=== PATIENT | male | born 1940 | race Caucasian/White ===

== ENCOUNTER 2017-06-08 21:26 | Inpatient (IN) | payer OTHER ==
[2017-06-08] MEDS ORDERED: NS 1,000 ML IV ONE (21:42)
--- NOTE | 2017-06-08 21:47 | EDPHY ---
H & P HPI/ROS: CHIEF COMPLAINT: N/V/D, bed bugs HISTORY OF PRESENT ILLNESS: The patient is a 77 y/o male with a history of rheumatoid arthritis arriving via EMS from the [facility] due to concern about failure to thrive. Staff called EMS because he was in the shower for over an hour and they were concerned he was unable to take care of himself. He reports staying in the shower because it felt good. He's had a few days of nausea, vomiting, and diarrhea. His vomiting improved today and he has been able to keep down some fluids, but he is continuing to have diarrhea. He c/o generalized weakness and unsteady gait. He also complains of a bed bug infestation since moving into the [facility] in March. He's noticed bites all over his body and has been scratching relentlessly. He's seen bugs all over his body and clothing, which EMS also observed on their arrival at the [facility]. He generally feels weak and says, "I just need to get my strength back." He denies abdominal pain, fever, cough. REVIEW OF SYSTEMS: Constitutional: No fever, no chills Eyes: No visual changes ENT: No sore throat Respiratory: No cough, no shortness of breath Cardiac: No chest pain Gastrointestinal: see HPI Genitourinary: No hematuria, no dysuria Musculoskeletal: No leg pain or swelling Skin: No rash Neurological: No headache Psychiatric: No anxiety - Medical/Surgical History PMH: PMH includes: 1. Rheumatoid arthritis 2. Multiple compression fractures Prior medical records reviewed including imaging reports from 2014. 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 He complains of a few-day history of nausea, vomiting, diarrhea and 2- month history of pruritic bug bites. He has multiple areas of deep excoriation on all extremities and trunk that he reports are from bed bug bites. EMS removed pt's clothes and placed them in a bag. His bagged clothing that were transferred with him are infested with visible lice. Plan for IV, labs, and topical permethrin cream. Anticipate admission. The ED RN applied permethrin cream to entire body. IV NS 1 liter given, continues to feel quite weak. Abd exam remains benign, labs c/w dehydration, with low CO2 and elevated BUN. Will require further IV rehydration. No BM while in ED; stool sample not obtained. Consulted with hospitalist service. Dr. Young accepts admission. Differential Diagnosis: includes though not limited to SBO, bowel perf, appy, Cdif colitis, cholecystitis - Data Points Laboratory Results: Laboratory Results 06/09/17 04:10 06/09/17 04:10 Medications Given: Enoxaparin Sodium (Lovenox) 40 mg SC DAILY [facility] Stop: 12/06/17 08:59 Last Admin: 06/10/17 08:18 Dose: 40 mg Lactated Ringer's (Lr) 1,000 mls @ 100 mls/hr IV CONT SHANELL Stop: 12/06/17 01:29 Last Admin: 06/10/17 04:46 Dose: 1,000 mls Vancomycin HCl (Vancocin Oral Liquid) 250 mg PO QID SHANELL PRN Reason: Protocol Stop: 07/10/17 08:52 Last Admin: 06/10/17 12:21 Dose: 250 mg Discontinued Medications Cephalexin HCl (Keflex) 500 mg PO TID SHANELL PRN Reason: Protocol Stop: 07/09/17 01:14 Last Admin: 06/10/17 08:18 Dose: 500 mg Sodium Chloride (Ns) 1,000 mls @ 0 mls/hr IV EDNOW ONE; Wide Open PRN Reason: Protocol Stop: 06/08/17 21:43 Last Admin: 06/08/17 22:10 Dose: 1,000 mls Permethrin (Elimite 5%) 1 diana TP EDNOW ONE Stop: 06/08/17 21:58 Last Admin: 06/09/17 00:09 Dose: 1 tube Permethrin (Elimite 5%) 1 diana TP EDNOW ONE Stop: 06/08/17 23:13 Last Admin: 06/09/17 00:10 Dose: 1 tube Departure - Departure Disposition: [facility] Acute Clinical Impression: Lice infestation, Nausea vomiting and diarrhea, Weakness Condition: Fair Report Scribed for: Jaclyn Thomas Report Scribed by: Melissa Mitchell Date of Report: 06/08/17 Time of Report: 21:47 Physician Review and Approval Statement: 06/08/17 21:47 Portions of this note were transcribed by a manager medical affairs. I personally performed a history, physical exam, medical decision making, and confirmed accuracy of information the transcribed note.
[2017-06-08] MEDS ORDERED: PERMETHRIN 5% 60 GM CREAM TP ONE ×2 (21:57→23:12)
[2017-06-08 22:28] LABS: % IMMATURE GRANULYOCYTES 0.5 % (0.0-1.1); ABSOLUTE IMMATURE GRANULOCYTES 0.04 10^3/uL (0.00-0.10); ADD DIFF? NO; ADD MORPH? NO; ADD SCAN? NO; ATYPICAL LYMPHOCYTE FLAG 20 (0-99); FRAGMENT RBC FLAG 20 (0-99); HEMATOCRIT 43.3 % (40.0-51.0); HEMOGLOBIN 14.1 g/dL (13.7-17.5); LEFT SHIFT FLG 0 (0-99); LIPEMIA HEMOLYSIS FLAG 80 (0-99); MEAN CELL HEMOGLOBIN CONCENTR. 32.6 g/dL (32.4-36.7); MEAN CELL VOLUME 92.1 fL (81.5-99.8); MEAN PLATELET VOLUME 9.7 fL (8.7-11.7); PLATELET CLUMPS FLAG 0 (0-99); PLATELET COUNT 226 10^3/uL (150-400); RED CELL DISTRIBUTION WIDTH 14.8 % (11.5-15.2)
[2017-06-08 23:28] LABS: ANION GAP 17 mEq/L (8-16); CALCIUM 7.8 mg/dL (8.5-10.4); CARBON DIOXIDE 16 mEq/l (22-31); CHLORIDE 110 mEq/L (97-110); CREATININE 1.2 mg/dL (0.7-1.3); GLOMERULAR FILTRATION RATE 59; GLUCOSE 87 mg/dL (70-100); POTASSIUM 3.8 mEq/L (3.5-5.2); SODIUM 143 mEq/L (134-144)
--- NOTE | 2017-06-09 00:56 | PDGENHP ---
History and Physical - Chief Complaint nausea/vomiting/diarrhea, weakness and rash - History of Present Illness Source - patient able to provide pmhx. overall fair to poor historian. EMR reviewed and case discussed with ED provider. HPI - Pleasant 77 yo M with pmhx significant for rheumatoid arthritis and homeless ness residing in [facility] who presents to the ED via EMS after they were called concerned that patient had been sitting in the shower for over 1 hour. Patient reports decreased po intake 2/2 intractable nausea/vomiting. last episode of diarrhea occurred prior to patient arriving to ED. He denies any blood in emesis or diarrhea. He denies fevers/chills. He has had severe pruritis with aggressive itching on going for many months. he denies any streaking rash or pruritus between fingers/toes or genital area. He reports itching is mostly head, arms/legs. Upon intake to ED, patient was noted to have severe infestation of lice. He was given a shave of beared and his hair and treated with topical permethrin. ED provider noted patient had developed severe weakness. he has not had any episodes of nausea/vomiting since arrival to ED. History Information - Allergies/Home Medication List Allergies/Adverse Reactions: No Known Allergies Allergy (Unverified 06/08/17 21:34) Home Medications: NK [No Known Home Meds] 06/08/17 [Last Taken Unknown] I have personally reviewed and updated: family history, medical history, social history, surgical history - Past Medical History Additional medical history: rheumatoid arthritis. hx of compression fractures. homelessness - Surgical History Reports: no pertinent surgical hx Additional surgical history: patient denies - Social History Smoking Status: Former smoker Alcohol Use: None Drug Use: None Additional social history: Patient is homeless. stays in shelters. Denies alcohol, drugs, etoh. COR - FULL. Review of Systems Review of Systems: ROS: 10pt was reviewed & negative except for what was stated in HPI & below Muscolosketal: Reports: joint pain, joint swelling Skin: Reports: change in color (redness), rash, other (pruritus. scratching/ excoriation. ) Physical Exam Physical Exam: Selected Entries 06/08/17 21:34 Blood Pressure Automatic Method Heart Rate 100 Respiratory 20 Rate O2 Sat (%) 91 L Temperature (C) 36.7 C Blood Pressure 147/83 H Mean Arterial 104 H Pressure (MAP) O2 Delivery Room Air Mode Temperature Oral Source Temp Pulse Resp BP Pulse Ox 36.7 C 94 16 102/78 96 06/08/17 21:34 06/09/17 00:11 06/09/17 00:11 06/09/17 00:11 06/09/17 00:23 O2 (L/minute) 2 Constitutional: no apparent distress, unkempt, cachectic, other (NAd. patient lays in bed asleep when I enter room, wakes easily. ) Eyes: PERRL, anicteric sclera, EOMI, No scleral injection Ears, Nose, Mouth, Throat: poor dentition, dry mucous membranes, other (no nasal discharge. ) Cardiovascular: regular rate and rhythym, no murmur, rub, or gallop, No edema Peripheral Pulses: 2+: dorsalis-pedis (R), dorsalis-pedis (L) Respiratory: no respiratory distress, no rales or rhonchi, clear to auscultation Gastrointestinal: normoactive bowel sounds, soft, non-tender abdomen, no palpable masses, No guarding Genitourinary: no bladder tenderness, No sneed in urethra Skin: warm, rash, other (excoriations diffusely chest, arms, legs, neck. some scabbed areas exposed. right arm with increased erythema along with excoriations. ) Musculoskeletal: generalized weakness, other (sits up independently. ) Neurologic: AAOx3, weakness (generalized.), CN II-XII Intact, No facial droop Psychiatric: interacting appropriately, not anxious, not encephalopathic, thought process linear, No poor insight, No poor judgement, No poor memory Lab Data & Imaging Review 06/08/17 22:10 06/08/17 23:10 WBC 8.41 10^3/uL (3.80-9.50) 06/08/17 22:10 RBC 4.70 10^6/uL (4.40-6.38) 06/08/17 22:10 Hgb 14.1 g/dL (13.7-17.5) 06/08/17 22:10 Hct 43.3 % (40.0-51.0) 06/08/17 22:10 MCV 92.1 fL (81.5-99.8) 06/08/17 22:10 MCH 30.0 pg (27.9-34.1) 06/08/17 22:10 MCHC 32.6 g/dL (32.4-36.7) 06/08/17 22:10 RDW 14.8 % (11.5-15.2) 06/08/17 22:10 Plt Count 226 10^3/uL (150-400) 06/08/17 22:10 MPV 9.7 fL (8.7-11.7) 06/08/17 22:10 Neut % (Auto) 86.4 % (39.3-74.2) H 06/08/17 22:10 Lymph % (Auto) 5.7 % (15.0-45.0) L 06/08/17 22:10 Amite % (Auto) 7.1 % (4.5-13.0) 06/08/17 22:10 Eos % (Auto) 0.1 % (0.6-7.6) L 06/08/17 22:10 Baso % (Auto) 0.2 % (0.3-1.7) L 06/08/17 22:10 Nucleat RBC Rel Count 0.0 % (0.0-0.2) 06/08/17 22:10 Absolute Neuts (auto) 7.26 10^3/uL (1.70-6.50) H 06/08/17 22:10 Absolute Lymphs (auto) 0.48 10^3/uL (1.00-3.00) L 06/08/17 22:10 Absolute Monos (auto) 0.60 10^3/uL (0.30-0.80) 06/08/17 22:10 Absolute Eos (auto) 0.01 10^3/uL (0.03-0.40) L 06/08/17 22:10 Absolute Basos (auto) 0.02 10^3/uL (0.02-0.10) 06/08/17 22:10 Absolute Nucleated RBC 0.00 10^3/uL (0-0.01) 06/08/17 22:10 Immature Gran % 0.5 % (0.0-1.1) 06/08/17 22:10 Immature Gran # 0.04 10^3/uL (0.00-0.10) 06/08/17 22:10 Sodium 143 mEq/L (134-144) 06/08/17 23:10 Potassium 3.8 mEq/L (3.5-5.2) 06/08/17 23:10 Chloride 110 mEq/L (97-110) 06/08/17 23:10 Carbon Dioxide 16 mEq/l (22-31) L 06/08/17 23:10 Anion Gap 17 mEq/L (8-16) H 06/08/17 23:10 BUN 52 mg/dL (7-23) H 06/08/17 23:10 Creatinine 1.2 mg/dL (0.7-1.3) 06/08/17 23:10 Estimated GFR 59 06/08/17 23:10 Glucose 87 mg/dL (70-100) 06/08/17 23:10 Calcium 7.8 mg/dL (8.5-10.4) L 06/08/17 23:10 Assessment & Plan Assessment: 77 yo M presents from [facility] after concerns for decline in medical condition. patient with hx intractable nausea/vomiting/diarrhea and found to have severe lice infestation. #Nausea vomiting and diarrhea (Acute) - zofran prn. IVF. check stool pcr. lomotil prn. #Lice infestation (Acute) - s/p shave and application of permethrin. Patient without any evidence of scabies infection. #Generalized Weakness (Acute) - likely multifactorial including recent nausea/ vomiting/diarrhea, dehydration and likely component of malnutrition. advance diet as tolerated. continue prn anti-emetics and IVF overnight. #romain - likely pre-renal wtih recent episode of n/v/d. #dehydration - IVF overnight. advanced diet as tolerated. #excoriations/pruritus - patient with significant excoriations to arms/neck/ chest/legs. right arm in particular appears red with slightly increased warmth concerning for development of cellulitis. Patient will be started on keflex at this time. no leukocyotosis. screen and administer tetanus vaccination if needed. #Rheumatoid arthritis - patient still able to ambulate short distance. up with assistance ordered. FEN - IVF overnight. monitor electrolytes. advance diet as tolerated. PPX - SCDs. lovenox. COR - FULL. Dispo - patient admitted to observation on medical floor.
[2017-06-09] MEDS ORDERED: ONDANSETRON 4 MG/2 ML VIAL IVP PRN (01:04)
[2017-06-09] MEDS ORDERED: PROMETHAZINE HCL 25 MG/ML INJ IVP PRN (01:04)
[2017-06-09] MEDS ORDERED: HYDROCODONE/APAP 5/325 TAB PO PRN (01:04)
[2017-06-09] MEDS ORDERED: ACETAMINOPHEN 325 MG TAB PO PRN (01:04)
[2017-06-09] MEDS: CEPHALEXIN 500 MG CAP PO SCH ×4 (01:27→20:57)
[2017-06-09] MEDS: LR 1,000 ML IV SCH ×2 (01:27→16:43)
[2017-06-09 04:52] LABS: % IMMATURE GRANULYOCYTES 0.4 % (0.0-1.1); ABSOLUTE IMMATURE GRANULOCYTES 0.03 10^3/uL (0.00-0.10); ADD DIFF? NO; ADD MORPH? NO; ADD SCAN? NO; ATYPICAL LYMPHOCYTE FLAG 10 (0-99); FRAGMENT RBC FLAG 0 (0-99); HEMATOCRIT 37.6 % (40.0-51.0); HEMOGLOBIN 11.7 g/dL (13.7-17.5); LEFT SHIFT FLG 0 (0-99); LIPEMIA HEMOLYSIS FLAG 80 (0-99); MEAN CELL HEMOGLOBIN 29.3 pg (27.9-34.1); MEAN CELL HEMOGLOBIN CONCENTR. 31.1 g/dL (32.4-36.7); MEAN PLATELET VOLUME 9.8 fL (8.7-11.7); PLATELET CLUMPS FLAG 10 (0-99); PLATELET COUNT 190 10^3/uL (150-400); RED CELL DISTRIBUTION WIDTH 14.7 % (11.5-15.2)
[2017-06-09 05:07] LABS: ALBUMIN 2.7 g/dL (3.5-5.0); ANION GAP 13 mEq/L (8-16); CALCIUM 7.8 mg/dL (8.5-10.4); CARBON DIOXIDE 19 mEq/l (22-31); CHLORIDE 110 mEq/L (97-110); CREATININE 1.1 mg/dL (0.7-1.3); GLOMERULAR FILTRATION RATE > 60; GLUCOSE 89 mg/dL (70-100); POTASSIUM 3.7 mEq/L (3.5-5.2); SODIUM 142 mEq/L (134-144)
[2017-06-09] MEDS: ENOXAPARIN 40 MG/0.4 ML SYR SC SCH (10:09)
--- NOTE | 2017-06-09 14:57 | ASMTCMCOM ---
CM Note CM Note Notes: Pt came late last night from the half-way. Pt has a lice infestation but dc needs unclear. Will likely dc to half-way, GERALD w/f. Date Signed: 06/09/2017 02:57 PM Electronically Signed By:Lindy Braun RN
--- NOTE | 2017-06-09 15:49 | HOSPPROG ---
Hospitalist Progress Note Assessment/Plan: 77 yo M w homelessness here w nuasea and diarrhea, MYLENE MYLENE: elevated bun no signs GI Bleeding continue IVF lice: s/p treatment cellulitis: inproved 5 day course of keflex proph: lmwh dispo: change to inpt- will keep IVF overnight Subjective: feels ok Objective: Vital Signs Temp Pulse Resp BP Pulse Ox 36.6 C 82 18 99/67 L 94 06/09/17 11:34 06/09/17 11:34 06/09/17 11:34 06/09/17 11:34 06/09/17 11:34 Laboratory Results 06/09/17 04:10 06/09/17 04:10 06/08/17 06/09/17 06/10/17 05:59 05:59 05:59 Intake Total 1000 Balance 1000 - Physical Exam Constitutional: no apparent distress, appears nourished Eyes: PERRL, anicteric sclera Ears, Nose, Mouth, Throat: moist mucous membranes, hearing normal Cardiovascular: regular rate and rhythym, no murmur, rub, or gallop Respiratory: no respiratory distress, no rales or rhonchi Gastrointestinal: normoactive bowel sounds, soft, non-tender abdomen Genitourinary: no bladder fullness Skin: warm, normal color, other (decreased erythema on arm) Musculoskeletal: full muscle strength, no muscle tenderness Neurologic: AAOx3 Psychiatric: interacting appropriately Lymph, Heme, Immunologic: no cervical LAD ICD10 Worksheet Patient Problems: Problems Problem Status Onset Lice infestation Acute Nausea vomiting and diarrhea Acute Weakness Acute
[2017-06-10] MEDS: LR 1,000 ML IV SCH ×2 (04:46→15:42)
[2017-06-10 06:20] LABS: % IMMATURE GRANULYOCYTES 0.3 % (0.0-1.1); ABSOLUTE IMMATURE GRANULOCYTES 0.02 10^3/uL (0.00-0.10); ADD DIFF? NO; ADD MORPH? NO; ADD SCAN? NO; ATYPICAL LYMPHOCYTE FLAG 40 (0-99); FRAGMENT RBC FLAG 0 (0-99); HEMATOCRIT 32.1 % (40.0-51.0); HEMOGLOBIN 10.2 g/dL (13.7-17.5); LEFT SHIFT FLG 0 (0-99); LIPEMIA HEMOLYSIS FLAG 80 (0-99); MEAN CELL HEMOGLOBIN 29.5 pg (27.9-34.1); MEAN CELL HEMOGLOBIN CONCENTR. 31.8 g/dL (32.4-36.7); MEAN CELL VOLUME 92.8 fL (81.5-99.8); MEAN PLATELET VOLUME 9.6 fL (8.7-11.7); PLATELET CLUMPS FLAG 0 (0-99); PLATELET COUNT 172 10^3/uL (150-400); RED BLOOD CELL COUNT 3.46 10^6/uL (4.40-6.38); RED CELL DISTRIBUTION WIDTH 14.9 % (11.5-15.2)
[2017-06-10 06:39] LABS: ANION GAP 8 mEq/L (8-16); CALCIUM 7.3 mg/dL (8.5-10.4); CARBON DIOXIDE 23 mEq/l (22-31); CHLORIDE 110 mEq/L (97-110); CREATININE 0.8 mg/dL (0.7-1.3); GLOMERULAR FILTRATION RATE > 60; GLUCOSE 85 mg/dL (70-100); POTASSIUM 3.8 mEq/L (3.5-5.2); SODIUM 141 mEq/L (134-144)
[2017-06-10] MEDS: ENOXAPARIN 40 MG/0.4 ML SYR SC SCH (08:18)
[2017-06-10] MEDS: CEPHALEXIN 500 MG CAP PO SCH (08:18)
[2017-06-10] MEDS: VANCOMYCIN 125 MG/2.5 ML UDL PO SCH ×4 (09:52→20:55)
--- NOTE | 2017-06-10 11:19 | ASMTCMCOM ---
CM Note CM Note Notes: Per Dr Almeida pt has both norovirus and cdiff. Dr Almeida is requesting a respite stay of at least two nights for pt. Pt will likely DC tomorrow. C/M to follow. Date Signed: 06/10/2017 11:18 AM Electronically Signed By:Claire Bush LCSW
--- NOTE | 2017-06-10 11:22 | HOSPPROG ---
Hospitalist Progress Note Assessment/Plan: 77 yo M w homelessness here w nuasea and diarrhea, MYLENE MYLENE: elevated bun no signs GI Bleeding continue IVF improved today lice: s/p treatment cellulitis: resolved dc keflex given concurrent cdiff cdif: start po vancomycin norovirus: suppotive care proph: lmwh dispo: change to inpt- Subjective: stool + for cdiff AND norovirus Objective: Vital Signs Temp Pulse Resp BP Pulse Ox 36.8 C 75 16 113/60 91 L 06/10/17 11:06 06/10/17 11:06 06/10/17 11:06 06/10/17 11:06 06/10/17 11:06 Microbiology 06/10/17 00:41 Gastrointestinal Tract Panel (PCR) - Final Stool Clostridium Difficile Detected Norovirus Gi/Gii Laboratory Results 06/10/17 06:05 06/10/17 06:05 06/09/17 06/10/17 06/11/17 05:59 05:59 05:59 Intake Total 1000 Output Total 250 250 Balance 750 -250 - Physical Exam Constitutional: no apparent distress, appears nourished Eyes: PERRL, anicteric sclera Ears, Nose, Mouth, Throat: moist mucous membranes, hearing normal Cardiovascular: regular rate and rhythym, no murmur, rub, or gallop, systolic murmur Respiratory: no respiratory distress, no rales or rhonchi Gastrointestinal: normoactive bowel sounds, No guarding, No rebound, No distension Genitourinary: no bladder fullness, No sneed in urethra Skin: other (innumerable excoriations. no cellulitis) Musculoskeletal: full muscle strength Neurologic: AAOx3 ICD10 Worksheet Patient Problems: Problems Problem Status Onset Lice infestation Acute Nausea vomiting and diarrhea Acute Weakness Acute
[2017-06-11] MEDS: LR 1,000 ML IV SCH (02:00)
[2017-06-11] MEDS: VANCOMYCIN 125 MG/2.5 ML UDL PO SCH ×4 (05:04→20:01)
--- NOTE | 2017-06-11 10:18 | HOSPPROG ---
Hospitalist Progress Note Assessment/Plan: 77 yo M w homelessness here w nuasea and diarrhea, MYLENE MYLENE: elevated bun no signs GI Bleeding dc IVF repeat in AM lice: s/p treatment cellulitis: resolved dc keflex given concurrent cdiff cdif: start po vancomycin norovirus: suppotive care stillw sig diarrhea proph: lmwh dispo: change to inpt- Subjective: 4 episodes of diarhea yesterday. feels weak Objective: Vital Signs Temp Pulse Resp BP Pulse Ox 36.4 C 71 18 137/80 H 94 06/11/17 07:25 06/11/17 07:25 06/11/17 07:25 06/11/17 07:25 06/11/17 07:25 Microbiology 06/10/17 00:41 Gastrointestinal Tract Panel (PCR) - Final Stool Clostridium Difficile Detected Norovirus Gi/Gii Laboratory Results 06/10/17 06:05 06/10/17 06:05 06/10/17 06/11/17 06/12/17 05:59 05:59 05:59 Intake Total 1000 2469 Output Total 250 1750 Balance 750 719 - Physical Exam Constitutional: no apparent distress Eyes: PERRL, anicteric sclera Ears, Nose, Mouth, Throat: moist mucous membranes, hearing normal Cardiovascular: regular rate and rhythym, no murmur, rub, or gallop, No tachycardia Respiratory: no respiratory distress, no rales or rhonchi Gastrointestinal: No guarding, No rebound Genitourinary: no bladder fullness Skin: warm, normal color Musculoskeletal: full muscle strength Neurologic: AAOx3 ICD10 Worksheet Patient Problems: Problems Problem Status Onset Lice infestation Acute Nausea vomiting and diarrhea Acute Weakness Acute
[2017-06-11] MEDS: ENOXAPARIN 40 MG/0.4 ML SYR SC SCH (10:19)
[2017-06-12] MEDS: VANCOMYCIN 125 MG/2.5 ML UDL PO SCH ×3 (05:03→16:23)
[2017-06-12 05:04] LABS: ANION GAP 9 mEq/L (8-16); CALCIUM 7.7 mg/dL (8.5-10.4); CARBON DIOXIDE 23 mEq/l (22-31); CHLORIDE 107 mEq/L (97-110); CREATININE 0.7 mg/dL (0.7-1.3); GLOMERULAR FILTRATION RATE > 60; GLUCOSE 93 mg/dL (70-100); POTASSIUM 4.2 mEq/L (3.5-5.2); SODIUM 139 mEq/L (134-144)
[2017-06-12] MEDS: ENOXAPARIN 40 MG/0.4 ML SYR SC SCH (09:41)
--- NOTE | 2017-06-12 11:15 | ASMTCMCOM ---
CM Note CM Note Notes: Spoke with patient who is grateful for the respite bed. Arrangements have been made with [facility] in [place], [place] for the patient to stay tonight and tomorrow night. [employer] will deliver 2 meals tomorrow and 1 meal on Monday since patient will have to check out at 12:00. Patient signed the respite agreement for conditions of stay. Patient will go by taxi to the [facility] and will be provided 1 bus pass to return to [place] when his respite is complete. Patient will also be provided his medications here before he goes. Check in time is 3:00 (15:00) PM and so transportation will be arranged for 2:30 PM. Awaiting transfer of care summary to set up transport. CM will follow. Date Signed: 06/12/2017 11:15 AM Electronically Signed By:Soni Aly LCSW
--- NOTE | 2017-06-12 11:23 | HOSPPROG ---
Hospitalist Progress Note Assessment/Plan: 77 yo M w homelessness here w nuasea and diarrhea, MYLENE MYLENE: elevated bun no signs GI Bleeding dc IVF repeat in AM lice: s/p treatment cellulitis: resolved dc keflex given concurrent cdiff cdif: start po vancomycin norovirus: suppotive care stillw sig diarrhea proph: lmwh dispo: home today >30 minutes Subjective: diarhea slowing Objective: Vital Signs Temp Pulse Resp BP Pulse Ox 36.6 C 59 L 18 139/86 H 91 L 06/12/17 08:00 06/12/17 08:00 06/12/17 08:00 06/12/17 08:00 06/12/17 08:00 Laboratory Results 06/10/17 06:05 06/12/17 04:25 06/11/17 06/12/17 06/13/17 05:59 05:59 05:59 Intake Total 2469 1550 Output Total 1750 2359 600 Balance 719 -809 -600 - Physical Exam Constitutional: no apparent distress, appears nourished Eyes: PERRL, anicteric sclera Ears, Nose, Mouth, Throat: moist mucous membranes, hearing normal Cardiovascular: regular rate and rhythym, no murmur, rub, or gallop Respiratory: no respiratory distress, no rales or rhonchi Gastrointestinal: normoactive bowel sounds, soft, non-tender abdomen, no palpable masses Genitourinary: no bladder fullness, No sneed in urethra Skin: warm, normal color Musculoskeletal: full muscle strength, no muscle tenderness Neurologic: AAOx3 ICD10 Worksheet Patient Problems: Problems Problem Status Onset Lice infestation Acute Nausea vomiting and diarrhea Acute Weakness Acute
[2017-06-12 11:42] VITALS: BP 107/64; PULSE 82; RESP 16; TEMP 98.6; O2SAT 92
--- NOTE | 2017-06-12 12:59 | GDS ---
[f rep st] DISCHARGE SUMMARY DISCHARGE DIAGNOSES: 1. Lice. 2. Norovirus. 3. Clostridium difficile. 4. Rheumatoid arthritis. 5. Acute kidney injury. Please see admission history and physical by Dr. Diana Young. The patient presented with abdominal pain and diarrhea. He was diagnosed with the aforementioned infection. He was started on vancomycin . He was placed in isolation. He shaved and treated with permethrin. Patient's exam has continued to improve. He also had acute kidney injury. That has also resolved with IV hydration. He is disch arged for a couple of respite days in a local hotel as well as a prescription for 14 days total of nh ncomycin. /[id number]/MODL
--- NOTE | 2017-06-12 17:09 | ASDISCHSUM ---
Discharge Information Plan Status:Homeless/Half-Way Medically Cleared to Leave:06/11/2017 Discharge Date:06/12/2017 05:00 PM CM D/C Disposition: ADT D/C Disposition:Home, Routine, Self-Care Projected Discharge Date:06/12/2017 12:00 AM Transportation at D/C: Discharge Delay Reason: Follow-Up Date:06/12/2017 12:00 AM Discharge Slot: Final Diagnosis: Placement Information Patient Contact Information Contact Name:DUDLEY Relationship:Friend Address:[id number] City:[place] Alternate Phone: [facility]/Zip Code:[place] [address] Email: Financial Information Financial Class:Medicare Advantage Plans Primary Plan Desc:[facility] [employer] PLANS Primary Plan Number:[id number] Secondary Plan Desc: Secondary Plan Number: Assessment Information [facility] CM Progress Note CM Note CM Note Notes: Pt [facility]. Pt has a lice infestation but dc needs unclear. Will likely dc to [facility], CM w/f. Date Signed: 06/09/2017 02:57 PM Electronically Signed By:Lindy Braun RN [facility] CM Progress Note CM Note CM Note Notes: Per Dr Almeida pt has both norovirus and cdiff. Dr Almeida is requesting a respite stay of at least two nights for pt. Pt will likely DC tomorrow. C/M to follow. Date Signed: 06/10/2017 11:18 AM Electronically Signed By:Claire Bush LCSW [facility] CM Progress Note CM Note CM Note Notes: Spoke with patient who is grateful for the respite bed. Arrangements have been made with [facility] in [place], [place] for the patient to stay tonight and tomorrow night. [employer] will deliver 2 meals tomorrow and 1 meal on Monday since patient will have to check out at 12:00. Patient signed the respite agreement for conditions of stay. Patient will go by taxi to the [facility] and will be provided 1 bus pass to return to [place] when his respite is complete. Patient will also be provided his medications here before he goes. Check in time is 3:00 (15:00) PM and so transportation will be arranged for 2:30 PM. Awaiting transfer of care summary to set up transport. CM will follow. Date Signed: 06/12/2017 11:15 AM Electronically Signed By:Soni Aly LCSW Case Management Discharge Plan Note Case Management Discharge Discharge Order Complete? Answers: Yes Patient to Obtain Answers: via MAP Medications Transportation Arranged Answers: Taxi - Voucher Transport will Pick (Date 06/12/2017 12:00 AM & Time) Family Notified Answers: No Notes: no family Discharge Comments Notes: Patient will stay at the [facility] in [place], [place] for the next 2 nights for respite. Meals on Wheels has been set up and patient was given his medication to take with him. Patient was provided clean clothes since his had to be thrown out and a coat. He was also given a bus pass so he can return to [place] when his respite is complete. Patient was informed we did not have his wallet and phone and he will need to check with the [facility] to see if they have his things. Patient taken by taxi to the hotel room. He will need to take his vancomyacin for another 10 days. Date Signed: 06/12/2017 04:58 PM Electronically Signed By:Soni Aly LCSW Intervention Information Intervention Type:*ARROYO-Signed Date of Service:06/09/2017 11:04 AM Patient Type:Observation Staff Member:Rashida Armenta Hours: Discipline: Severity: Comment: Intervention Type:*IM-Signed Date of Service:06/12/2017 11:03 AM Patient Type:Inpatient Staff Member:Rashida Armenta Hours: Discipline: Severity: Comment:
== END 2017-06-12 17:00 | disposition home or self-care (01) | DRG 372 ==
LOC: EDUNIT# → F3E 06-09 00:36 → OBSVTOIN 06-09 15:44
PROVIDERS: ADMIT Family Medicine; ATTEND Family Medicine
DX: A04.72 Enterocolitis due to Clostridium difficile, not specified as recurrent (principal); A08.11 Acute gastroenteropathy due to Norwalk agent; E86.0 Dehydration; N17.9 Acute kidney failure, unspecified; B85.0 Pediculosis due to Pediculus humanus capitis; B85.1 Pediculosis due to Pediculus humanus corporis; L03.113 Cellulitis of right upper limb; M06.9 Rheumatoid arthritis, unspecified; Z59.0 Homelessness; Z87.891 Personal history of nicotine dependence
CPT/HCPCS: 97161-GP; G8978-GP-CH; G8979-GP-CH; G8980-GP-CH; J1650

== ENCOUNTER 2017-09-27 19:45 | Inpatient (IN) | payer OTHER ==
--- NOTE | 2017-09-27 20:00 | EDPHY ---
General - History Smoking Status: Former smoker Time Seen by Provider: 09/27/17 19:54 Narrative: CHIEF COMPLAINT: Shortness of breath, cough, chest pain HISTORY OF PRESENT ILLNESS: Patient complains of 2 days history of cough, shortness of breath and chest pain. The cough is productive with multi colored sputum. The shortness of breath is worse when lying down and with exertion. Chest pain has been present the entire time. It is not exertional. Worse with inspiration and breathing. Questionable fever. Some chills. He is currently at the half-way and they have sent him here due to the complaint and they report possible bed bugs. He was evaluated in the contaminated here with no evidence of this. He has no modifying factors. He has previous smoker, quitting 2 years ago but does have a diagnosis of COPD. No recent diagnosis of pneumonia. No other associated complaints or modifying factors. REVIEW OF SYSTEMS: Ten systems reviewed and are negative unless otherwise noted in the HPI PCP: Dr. Holden SPECIALISTS: None PAST MEDICAL HISTORY: COPD, C difficile colitis, norovirus PAST SURGICAL HISTORY: No recent surgeries SOCIAL HISTORY: One [id number] smoker quitting 2 years ago. No drug or alcohol use. Currently homeless FAMILY HISTORY: Noncontributory EXAMINATION General Appearance: Alert, no distress, unkempt. Appears ill Head: normocephalic, atraumatic Eyes: Pupils equal and round, no conjunctival pallor or injection ENT, Mouth: Mucous membranes moist. Airway widely patent Neck: Normal inspection, supple, non-tender Respiratory: Harsh scattered rhonchi with expiratory wheezes and dry crackles at the bases. Tachypneic but in no acute distress Cardiovascular: Tachycardic rate. Regular rhythm. No murmur. Gastrointestinal: Abdomen is soft and nontender. No tympany rigidity. Back: non-tender, no bony abnormalities Neurological: A&O, nonfocal, strength is symmetric in all 4 limbs. Skin: Warm and dry, no rash no petechiae or purpura Extremities: Nontender, no pedal edema Psychiatric: Mood and affect normal DIFFERENTIAL DIAGNOSES: Including but not limited to sepsis, pneumonia, COPD exacerbation, CHF exacerbation, influenza, pneumonitis, bronchitis MDM: 8:00 p.m. Shortness of breath with chest pain, productive cough, room air hypoxemia. He is tachycardic and tachypneic. He is afebrile but does appear ill. I have ordered a septic workup including lactic acid and blood cultures. He is requiring 4 L nasal cannula at this time. He is awake and alert no acute distress. I have also ordered chest x-ray, sputum cultures, respiratory pathogen swab, DuoNeb treatment and Solu-Medrol. Dr. Thomas notified of his status and vitals. I do not feel his work of breathing or vitals warrant BiPAP or further adjuvant at this time. 8:05 p.m. Patient is now on OxyMask 8:25 p.m. Lactic acid is elevated at 3.8. This does meet criteria for severe sepsis. Dr. Thomas and I have evaluated this and the chest x-ray together. We have Ordered the sepsis bolus of fluid and repeat lactic acid. We have also ordered Levaquin empiric coverage. 8:50 p.m. Case discussed with hospitalist Dr. Smalls. He will admit the patient is service. He requests observation status in a step-down unit bed 9:25 p.m. Patient has been evaluated by Dr. Smalls. He is added a D-dimer and plans for CT scan of the chest after this returns. 9:40 p.m. Repeat lactic acid is 1.7. This is after 1700 mL of saline resuscitation. 10:00 p.m. The D-dimer is elevated. I have ordered CT angiography of the chest rule out PE. I have communicated this with Dr. Smalls as well. 10:20 p.m. Patient is currently being taken to the CT scanner. He will be taken to his step-down unit bed following this. I will communicate with fabric worker foreman Dr. Young when radiologist contact me with the findings. This time he remains stable on OxyMask with mild tachycardia. No respiratory distress. 10:30 p.m. Notified by radiologist Dr. Sue. CT scan reveals no PE. There is a thoracic aortic aneurysm measuring 4.5 cm at largest diameter. No dissection. No evaluation infra-renal. Airway disease without pneumonia. He recommends CTA of the abdomen and pelvis tomorrow if there is any concern for abdominal aortic aneurysm. He does not recommend further contrast load this evening. SUPERVISION: Patient was evaluated in conjunction with Dr. Thomas. We have both examined and evaluated the patient. (Manoj De Leon) - Diagnostics EKG Interpretation: EKG interpreted by me reveals sinus tachycardia, rate 111, PVC, inferior Q-waves , poor R-wave progression, no ST or T segment changes. Interpretation: Abnormal EKG (Jaclyn Thomas) Discussion: This patient was seen and examined by me. He presents with a 2 day history of URI symptoms, with gradually increasing shortness of breath. On exam, he is tachypneic and has expiratory wheezing on lung exam. He has already received Solu-Medrol and a DuoNeb. He will receive a continuous albuterol neb by Respiratory therapy. Chest x-ray reveals no evidence of pneumonia. However, given his presentation, associated with elevated lactate and advanced age, will treat with Levaquin IV for possible early pneumonia. IV fluids per the sepsis protocol initiated. Repeat lactate is pending at this point. I do not suspect that he has an alternative etiology for his symptomatology. Specifically I do not think that he has pulmonary edema, given clinical history, no prior cardiac history, no peripheral edema and normal BNP. EKG reveals no evidence ischemia and I do not suspect acute coronary syndrome. Serial exams--somewhat improved respiratory status after nebs, though continues to have insp/exp wheezing and oxygen requirement. This pt utilized 35 minutes of critical care time by me excluse of unbundled procedures and time spend by PA. Time spent in direct contact with pt, reassessments, interpretation of labs/studies, discussions with PA. Organ at risk: lungs (Jaclyn Thomas) - Objective Vital Signs: Initial Vital Signs Temperature (C) 36.9 C 09/27/17 19:45 Heart Rate 121 H 09/27/17 19:45 Respiratory Rate 24 H 09/27/17 19:45 Blood Pressure 180/98 H 09/27/17 19:45 O2 Sat (%) 86 L 09/27/17 19:45 O2 Delivery Mode Oxymask O2 (L/minute) 6 Allergies/Adverse Reactions: No Known Allergies Allergy (Unverified 09/27/17 19:56) Home Medications: Medication Instructions Recorded NK [No Known Home Meds] 09/27/17 Laboratory Results: Laboratory Results 09/27/17 20:06 09/27/17 20:06 Microbiology Results: MICROBIOLOGY 09/27/17 19:45 Blood Blood Culture - Preliminary 09/27/17 20:15 Blood Blood Culture - Preliminary 09/27/17 20:14 Nasal, Sinus - Swab Respiratory Panel (PCR) - Final Human Metapneumovirus Detected Medications Given: Albuterol/Ipratropium (Duoneb) 3 ml IH QID SHANELL Stop: 03/26/18 21:29 Last Admin: 09/29/17 05:53 Dose: 3 ml Enoxaparin Sodium (Lovenox) 40 mg SC DAILY [facility] Stop: 03/27/18 08:59 Last Admin: 09/29/17 08:35 Dose: 40 mg Sodium Chloride (Ns) 1,000 mls @ 150 mls/hr IV CONT SHANELL Stop: 03/26/18 21:14 Last Admin: 09/28/17 15:19 Dose: 1,000 mls Levofloxacin (Levaquin) 750 mg PO DAILY AT 10AM [facility] PRN Reason: Protocol Stop: 10/29/17 09:59 Last Admin: 09/29/17 08:35 Dose: 750 mg Prednisone (Prednisone) 40 mg PO DAILY [facility] Stop: 03/28/18 08:59 Last Admin: 09/29/17 08:35 Dose: 40 mg Discontinued Medications Albuterol/Ipratropium (Duoneb) 3 ml IH EDNOW ONE Stop: 09/27/17 20:03 Last Admin: 09/27/17 20:12 Dose: 3 ml Albuterol/Ipratropium (Duoneb) 3 ml IH EDNOW ONE Stop: 09/27/17 20:31 Last Admin: 09/27/17 20:52 Dose: 3 ml Sodium Chloride (Ns) 1,700 mls @ 3,400 mls/hr 30 ml/kg infuse over 30 min ( 1700 ml) IV EDNOW ONE PRN Reason: Protocol Stop: 09/27/17 20:56 Last Admin: 09/27/17 20:20 Dose: 1,700 mls Levofloxacin/Dextrose (Levaquin 750 Mg (Premix)) 150 mls @ 100 mls/hr IV EDNOW ONE PRN Reason: Protocol Stop: 09/27/17 21:59 Last Admin: 09/27/17 20:39 Dose: 150 mls Levofloxacin/Dextrose (Levaquin 750 Mg (Premix)) 150 mls @ 100 mls/hr IV DAILY SHANELL PRN Reason: Protocol Stop: 10/28/17 08:59 Last Admin: 09/28/17 09:32 Dose: 150 mls Methylprednisolone Sodium Succinate (Solu-Medrol) 125 mg IVP EDNOW ONE Stop: 09/27/17 20:03 Last Admin: 09/27/17 20:12 Dose: 125 mg Methylprednisolone Sodium Succinate (Solu-Medrol) 60 mg IVP Q6HRS [facility] Stop: 03/27/18 01:59 Last Admin: 09/28/17 01:28 Dose: 60 mg Methylprednisolone Sodium Succinate (Solu-Medrol) 60 mg IVP Q6H [facility] Stop: 03/27/18 07:59 Last Admin: 09/28/17 09:31 Dose: 60 mg Departure - Departure Disposition: [facility] Inpatient Acute Clinical Impression: COPD exacerbation, Severe sepsis, Hypoxemia Condition: Good
[2017-09-27] MEDS ORDERED: methylPREDNISolone SOD SUCC 125 MG/2 ML VIAL IVP ONE (20:02)
[2017-09-27] MEDS ORDERED: IPRATROPIUM/ALBUTEROL 3 ML DEYVIAL IH ONE ×2 (20:02→20:30)
[2017-09-27 20:14] LABS: PLATELET COUNT 234 10^3/uL (150-400)
[2017-09-27 20:24] LABS: INR 1.03 (0.83-1.16); PROTIME(PATIENT) 13.7 SEC (12.0-15.0)
[2017-09-27] MEDS ORDERED: NS 1,700 ML IV ONE (20:27)
--- NOTE | 2017-09-27 20:29 | CPEKG ---
Heart Rate: 111 RR Interval: 541 P-R Interval: 164 QRSD Interval: 78 QT Interval: 344 QTC Interval: 468 P [place]: 50 QRS [place]: -65 T Wave [place]: 35 EKG Severity - ABNORMAL ECG - EKG Impression: SINUS TACHYCARDIA EKG Impression: VENTRICULAR PREMATURE COMPLEX EKG Impression: PROBABLE LEFT ATRIAL ABNORMALITY EKG Impression: INFERIOR INFARCT, OLD EKG Impression: BORDERLINE R WAVE PROGRESSION, ANTERIOR LEADS Electronically Signed By: Jaclyn Thomas 27-Sep-2017 21:05:33
[2017-09-27] MEDS ORDERED: IPRATROPIUM/ALBUTEROL 3 ML DEYVIAL ONE (20:55)
[2017-09-27] MEDS ORDERED: ONDANSETRON DISINTEGRATING 4 MG TAB PO PRN (21:01)
[2017-09-27] MEDS ORDERED: ONDANSETRON 4 MG/2 ML VIAL IVP PRN (21:01)
[2017-09-27] MEDS ORDERED: ACETAMINOPHEN 325 MG TAB PO PRN (21:01)
[2017-09-27] MEDS ORDERED: IOPAMIDOL (ISOVUE 370) 100 ML BTL IV ONE (22:09)
--- NOTE | 2017-09-27 22:37 | PDGENHP ---
History and Physical - Chief Complaint Acute shortness of breath - History of Present Illness Primary care provider: None HPI: 77-year-old male presents with acute shortness of breath characterized as difficulty catching his breath with associated fatigue, productive cough, sinus congestion. The patient reports onset of symptoms several days ago and duration persistent worsening thereafter. He reports that he has been staying at the half-way, and his symptoms have been limiting his ability to get around and safely care for himself on the day of presentation, and he has come to the emergency department for evaluation. He has not been taking any medications as an outpatient. He has not followed up with any outpatient provider since his discharge last May. He denies any overt chest pain. History Information - Allergies/Home Medication List Allergies/Adverse Reactions: No Known Allergies Allergy (Unverified 09/27/17 19:56) Home Medications: NK [No Known Home Meds] 09/27/17 [Last Taken Unknown] I have personally reviewed and updated: family history, medical history, social history, surgical history - Past Medical History Additional medical history: rheumatoid arthritis. hx of compression fractures. homelessness. History of C diff with oral vancomycin May of 2017 - Surgical History Reports: no pertinent surgical hx Additional surgical history: patient denies - Family History Additional family history: Mother with rheumatoid arthritis, father with COPD - Social History Smoking Status: Former smoker Alcohol Use: None Drug Use: None Additional social history: Homeless, currently residing in half-way Review of Systems Review of Systems: ROS: 10pt was reviewed & negative except for what was stated in HPI & below Constitutional: Reports: malaise, weakness Respiratory: Reports: cough, shortness of breath Physical Exam Physical Exam: Temp Pulse Resp BP Pulse Ox 36.7 C 110 H 20 106/61 94 09/27/17 22:00 09/27/17 22:00 09/27/17 22:00 09/27/17 22:00 09/27/17 22:00 O2 (L/minute) 6 Constitutional: not in pain, chronically ill appearing, uncomfortable, No no apparent distress (Moderate respiratory distress) Eyes: PERRL, anicteric sclera, EOMI Ears, Nose, Mouth, Throat: dry mucous membranes Cardiovascular: tachycardia, No systolic murmur, No irregularly irregular, No edema Respiratory: expiratory wheeze, bronchial breath sounds, respiratory distress ( Visible tachypnea and labored breathing) Gastrointestinal: normoactive bowel sounds, soft, non-tender abdomen, no palpable masses, No distension Skin: No abrasion, No rash Neurologic: AAOx3, No weakness (Motor strength 5/5 bilateral lower extremities) , No facial droop Psychiatric: interacting appropriately, not encephalopathic, flat affect, other (Visibly fatigued), No agitated Lab Data & Imaging Review 09/27/17 20:06 09/27/17 20:06 WBC 11.29 10^3/uL (3.80-9.50) H 09/27/17 20:06 RBC 5.35 10^6/uL (4.40-6.38) 09/27/17 20:06 Hgb 15.5 g/dL (13.7-17.5) 09/27/17 20:06 Hct 48.2 % (40.0-51.0) 09/27/17 20:06 MCV 90.1 fL (81.5-99.8) 09/27/17 20:06 MCH 29.0 pg (27.9-34.1) 09/27/17 20:06 MCHC 32.2 g/dL (32.4-36.7) L 09/27/17 20:06 RDW 15.4 % (11.5-15.2) H 09/27/17 20:06 Plt Count 234 10^3/uL (150-400) 09/27/17 20:06 MPV 9.8 fL (8.7-11.7) 09/27/17 20:06 Neut % (Auto) 71.3 % (39.3-74.2) 09/27/17 20:06 Lymph % (Auto) 16.4 % (15.0-45.0) 09/27/17 20:06 [place] % (Auto) 9.8 % (4.5-13.0) 09/27/17 20:06 Eos % (Auto) 1.7 % (0.6-7.6) 09/27/17 20:06 Baso % (Auto) 0.4 % (0.3-1.7) 09/27/17 20:06 Nucleat RBC Rel Count 0.0 % (0.0-0.2) 09/27/17 20:06 Absolute Neuts (auto) 8.05 10^3/uL (1.70-6.50) H 09/27/17 20:06 Absolute Lymphs (auto) 1.85 10^3/uL (1.00-3.00) 09/27/17 20:06 Absolute Monos (auto) 1.11 10^3/uL (0.30-0.80) H 09/27/17 20:06 Absolute Eos (auto) 0.19 10^3/uL (0.03-0.40) 09/27/17 20:06 Absolute Basos (auto) 0.05 10^3/uL (0.02-0.10) 09/27/17 20:06 Absolute Nucleated RBC 0.00 10^3/uL (0-0.01) 09/27/17 20:06 Immature Gran % 0.4 % (0.0-1.1) 09/27/17 20:06 Immature Gran # 0.04 10^3/uL (0.00-0.10) 09/27/17 20:06 PT 13.7 SEC (12.0-15.0) 09/27/17 20:06 INR 1.03 (0.83-1.16) 09/27/17 20:06 APTT 32.3 SEC (23.0-38.0) 09/27/17 20:06 D-Dimer 3.98 ug/mLFEU (0.00-0.50) H 09/27/17 20:06 VBG Lactic Acid 1.7 mmol/L (0.7-2.1) D 09/27/17 21:25 Sodium 136 mEq/L (135-145) 09/27/17 20:06 Potassium 4.1 mEq/L (3.5-5.2) 09/27/17 20:06 Chloride 95 mEq/L (97-110) L 09/27/17 20:06 Carbon Dioxide 22 mEq/l (22-31) 09/27/17 20:06 Anion Gap 19 mEq/L (8-16) H 09/27/17 20:06 BUN 30 mg/dL (7-23) H 09/27/17 20:06 Creatinine 1.0 mg/dL (0.7-1.3) 09/27/17 20:06 Estimated GFR > 60 09/27/17 20:06 Glucose 148 mg/dL (70-100) H 09/27/17 20:06 Calcium 8.6 mg/dL (8.5-10.4) 09/27/17 20:06 Troponin I < 0.012 ng/mL (0.000-0.034) 09/27/17 20:06 NT-Pro-B Natriuret Pep 254 pg/mL (0-450) 09/27/17 20:06 Lipase 83 IU/L (23-300) 09/27/17 20:06 Nasal Influenza A PCR NEGATIVE FOR FLU A (NEGATIVE) 09/27/17 20:14 Nasal Influenza B PCR NEGATIVE FOR FLU B (NEGATIVE) 09/27/17 20:14 Visualized and Interpreted Chest x-ray results: Yes Chest X-Ray results: other (Visible interstitial markings, poor inspiratory film ) Visualized and Interpreted EKG results: Yes EKG Interpretation: Positive for: other (Sinus tachycardia with Q-waves inferiorly) Assessment & Plan Assessment: 77-year-old male presenting with acute hypoxic respiratory failure in the setting of suspected acute COPD exacerbation Plan: 1. Acute hypoxic respiratory failure. New problem this provider, further workup indicated. Evidenced by SpO2 of 86% on room air on presentation with objective tachypnea and respiratory rate of 24, visibly labored breathing, visible respiratory distress, most likely secondary to acute COPD exacerbation given his infectious symptoms further workup should be radiographically pursued -D-dimer positive, will get CT angiogram to rule out PE, evaluate for focal airspace disease indicative of pneumonia -get respiratory viral panel, as I suspect the patient may have high risk for respiratory viral pneumonia -given his severity of illness, the patient will receive IV levofloxacin in the emergency department this will be continued until further workup has been obtained -patient placed on face mask oxygen, does not require intubation at this time as his saturations have responded -get ABG -monitor in step-down unit 2. Suspected acute COPD exacerbation. Evidenced by expiratory wheezes, bronchial breath sounds, respiratory failure outlined above, smoking history, although not actively smoking -likely viral or bacterial pulmonary precipitant, getting CT imaging of the chest and respiratory viral panel -status post IV steroids in the emergency department, continue methylprednisone 60 mg q.6 -status post duo nebs and albuterol nebulizer in the emergency department, will continue DuoNeb scheduled q.6 -will continue IV antibiotic, can transition to oral if there is no evidence of bacterial infection on radiographic imaging -as above, get ABG to determine whether there is an element of hypercapnia 3. Acute metabolic acidosis. Secondary to lactic acid, peaked at 3.8, likely secondary to hypovolemia in the setting of above although severe sepsis has been considered -if patient does have evidence of verifiable infection present on admission, then this should be reached care arise as severe sepsis -given the patient's severity of illness, Manoj De Leon and I have agreed to treat the patient on the severe sepsis protocol with IV fluids, repeating his lactic acid level sequentially until cleared giving him empiric IV antibiotics as infection is workup 5. History of C diff. Reviewed outside records including 06/12/[address] Curt Almeida, he recounts that the patient was treated for lice with shaving of hair, norovirus supportively, C diff diarrhea with oral vancomycin for 14 days -monitor for any signs of diarrhea while receiving antibiotics above and perform C diff PCR if diarrhea does develop Diet. Regular Prophylaxis. High risk patient Lovenox 40 Code. Full per patient, Christian Francois is MDPOA Disposition. Anticipated discharge uncertain this time, anticipated length stay is greater than 48 hr warranting inpatient admission status for reasonable medical necessity including acute hypoxic respiratory failure, suspected acute COPD exacerbation, metabolic acidosis. 35 min of critical care time were spent with this patient, at bedside, coordinating care with emergency department staff and providers, specifically in regards to treating his acute respiratory failure which renders him critically ill and high risk for worsening morbidity and/or mortality.
[2017-09-27] MEDS: IPRATROPIUM/ALBUTEROL 3 ML DEYVIAL IH SCH (22:56)
[2017-09-28] MEDS ORDERED: methylPREDNISolone SOD SUCC 125 MG/2 ML VIAL IVP SCH ×2 (02:00→08:00)
[2017-09-28 03:50] LABS: PLATELET COUNT 158 10^3/uL (150-400)
[2017-09-28] MEDS: IPRATROPIUM/ALBUTEROL 3 ML DEYVIAL IH SCH ×4 (06:07→20:09)
--- NOTE | 2017-09-28 08:39 | PDMN ---
Medical Necessity Medical necessity: M100 COPD A-2 days: acute exacerbation O2 86% RA, SOB, tachypnea, tachycardia, cough, visable labored breathing, resp. distress, exp. wheezing, bronchial breath sounds, + D-Dimer, acute metabolic acidosis, will cont. duo nebs, alb. nebs, IV abx, IV steroids, Fluids, further monitoring, eval and tx nec. > 2 midnights anticipated.
[2017-09-28] MEDS: ENOXAPARIN 40 MG/0.4 ML SYR SC SCH (09:31)
--- NOTE | 2017-09-28 12:22 | HOSPPROG ---
Hospitalist Progress Note Assessment/Plan: #Acute hypoxic resp failure: due to human metapneumovirus. CTA negative for PE -likely COPD with significant tobacco history -supportive care #COPD exacerbation -Duonebs, change to PO prednisone, LQ #h/o C diff: treated May 2017. Denies diarrhea now #Lactic acidosis: resolved. Due to dehydration. #Deconditioning: PT #Diet: regular #DVT ppx: SCDs #Disp: cont inpatient admission for Duonebs, Abx and PT. Safe for med-surgery Subjective: productive cough this morning Objective: Vital Signs Temp Pulse Resp BP Pulse Ox 37 C 97 20 116/65 90 L 09/28/17 12:00 09/28/17 12:00 09/28/17 12:00 09/28/17 12:00 09/28/17 12:00 Microbiology 09/28/17 00:09 - Final Sputum, Expectorated Laboratory Results 09/28/17 03:40 09/28/17 03:40 09/27/17 09/28/17 09/29/17 05:59 05:59 05:59 Intake Total 2886 Output Total 450 410 Balance 2436 -410 PT 13.7 SEC (12.0-15.0) 09/27/17 20:06 INR 1.03 (0.83-1.16) 09/27/17 20:06 - Time Spent With Patient Time Spent with Patient: greater than 35 minutes Time Spent with Patient: Greater than 35 minutes spent on this patients care, greater than 50% of time spent counseling, educating, and coordinating care regarding the above mentioned plan. - Physical Exam Constitutional: chronically ill appearing, cachectic Eyes: PERRL Ears, Nose, Mouth, Throat: moist mucous membranes Cardiovascular: regular rate and rhythym Respiratory: other (diminshed breath sounds throughout. Few rhonchi) Genitourinary: no bladder fullness Skin: warm Neurologic: AAOx3, CN II-XII Intact Psychiatric: poor insight ICD10 Worksheet Patient Problems: Problems Problem Status Onset COPD exacerbation Acute Hypoxemia Acute Severe sepsis Acute Lice infestation Acute Nausea vomiting and diarrhea Acute Weakness Acute
--- NOTE | 2017-09-28 12:26 | ASMTCASEMG ---
Living Arrangements What is your living Answers: Alone arrangement? Who do you live with? Type Of Residence What kind of residence do Answers: Homeless you live in? Discharge Plan Comments Coordination Status Comments Notes: Patient is a 77yo single male who was admitted for an acute COPD exacerbation and hypoxemia. Patient is homeless and reports he is staying at the residential. OT/PT have been ordered. Patient has a [employer] Plan. D/C plan TBD. CM will follow. Date Signed: 09/28/2017 12:26 PM Electronically Signed By:Soni Aly LCSW
[2017-09-28] MEDS: NS 1,000 ML IV SCH (15:19)
[2017-09-29] MEDS: IPRATROPIUM/ALBUTEROL 3 ML DEYVIAL IH SCH ×4 (05:53→20:57)
[2017-09-29] MEDS: predniSONE 20 MG TAB PO SCH (08:35)
[2017-09-29] MEDS: ENOXAPARIN 40 MG/0.4 ML SYR SC SCH (08:35)
[2017-09-29] MEDS ORDERED: BENZONATATE 100 MG CAP PO PRN (09:00)
--- NOTE | 2017-09-29 09:11 | HOSPPROG ---
Hospitalist Progress Note Assessment/Plan: #Acute hypoxic resp failure: due to human metapneumovirus. CTA negative for PE -likely COPD with significant tobacco history -supportive care #COPD exacerbation -Duonebs, change to PO prednisone, LQ (Day 3) #h/o C diff: treated May 2017. Denies diarrhea now #Lactic acidosis: resolved. Due to dehydration. #Deconditioning: PT #Homelessness: stays in group home #Diet: regular #DVT ppx: SCDs #Disp: cont inpatient admission for Duonebs, Abx and PT. Safe for med-surgery. May be able to DC tomorrow Subjective: trying to cough up sputum Objective: Vital Signs Temp Pulse Resp BP Pulse Ox 36.9 C 71 16 128/90 H 94 09/28/17 19:41 09/29/17 05:50 09/29/17 05:50 09/29/17 04:00 09/29/17 05:50 Microbiology 09/28/17 00:09 - Final Sputum, Expectorated Laboratory Results 09/28/17 03:40 09/28/17 03:40 09/28/17 09/29/17 09/30/17 05:59 05:59 05:59 Intake Total 2886 4000 Output Total 450 1110 Balance 2436 2890 PT 13.7 SEC (12.0-15.0) 09/27/17 20:06 INR 1.03 (0.83-1.16) 09/27/17 20:06 ICD10 Worksheet Patient Problems: Problems Problem Status Onset COPD exacerbation Acute Hypoxemia Acute Severe sepsis Acute Lice infestation Acute Nausea vomiting and diarrhea Acute Weakness Acute
[2017-09-29] MEDS: NS 1,000 ML IV SCH (12:01)
[2017-09-29] MEDS: guaiFENesin 600 MG TAB.ER PO SCH ×2 (12:04→21:19)
--- NOTE | 2017-09-29 12:51 | ASMTCMCOM ---
CM Note CM Note Notes: Patient continues care for Duonebs, ABX and PT. Patient may be transferred to med-surg today. PT is stating no needs. Patient may need respite care. D/C most likely in the next 2 days. CM will follow. Date Signed: 09/29/2017 12:49 PM Electronically Signed By:Soni Aly LCSW
--- NOTE | 2017-09-29 13:42 | GCON ---
[f rep st] CONSULTATION PULMONARY CONSULTATION DATE OF CONSULTATION: 09/29/2017 REASON FOR CONSULTATION: Exacerbation of COPD. HISTORY: The patient is a 77-year-old gentleman with a history of COPD. He was admitted on 09/27 wi th increasing shortness of breath, cough, and purulent mucus. Symptoms had been present for approxim ately 3 days prior to admission. He takes no medications for his COPD. He is homeless and lives [place] at the halfway. He does not drink alcohol. He did smoke cigarettes heavily, but quit smoking about 3 years ago. On admission to the emergency department, he was tachypneic and tachycardic. He was requiring 4 L of nasal oxygen. Lactic acid was elevated. He was given DuoNeb, Solu-Medrol, and started on empiric Levaquin. A CT angiogram of the chest was done. This was negative for pulmonary embolic disease or obvious pneumonia. He was admitted to the intensive care unit on step-down statu s. PAST MEDICAL HISTORY: Remarkable for rheumatoid arthritis, homelessness, a history of Clostridium di fficile colitis, lice in the past, and compression fractures. MEDICATIONS: He was taking no medications on admission. ALLERGIES: No known drug allergies. SOCIAL HISTORY: The patient is homeless, lives primarily at the halfway, does not drink alcohol or u se drugs. He is no longer smoking. He previously worked as a automotive software engineer. He has family, inc luding children, who live out of state. He is apparently in communication intermittently with them. He has no immediate family here. FAMILY HISTORY: Noncontributory. REVIEW OF SYSTEMS: A 10-point review of systems is negative, except as outlined above. PHYSICAL EXAMINATION: GENERAL: An elderly, slight gentleman who is lying comfortably in bed. He fe els his chest is still tight. However, he denies being in any distress. VITAL SIGNS: On 2 L, satur ations are 94%. Blood pressure is 125/80, heart rate 70, with sinus rhythm on the monitor. He is af ebrile. HEENT: Unremarkable for lymphadenopathy or thyromegaly. Mucous membranes are moist. CHEST : Reveals decreased breath sounds bilaterally with a prolonged expiratory phase and bilateral expira tory wheezes, with cough and forced exhalation. With passive breathing, there are only a few wheezes . He is not using accessory muscles. He is not tight. There is some central bronchial congestion, but there are no ann rhonchi. HEART: Regular in rate and rhythm. There is a soft systolic murmur , no gallop. P2 appears normal. ABDOMEN: Soft, nontender. Bowel sounds are present. EXTREMITIES: Unremarkable for significant edema. There are no obvious cords, no tenderness. SKIN: Without sig nificant lesions or rash. NEUROLOGIC: Examination is intact. Mentation is intact. He is oriented x3. DATABASE: CT scan of the chest is as outlined above. There is no obvious emphysema. He does have s coliosis and relatively small lung volumes. Old compression fractures are noted. The aorta is tortu ous and large in the upper abdomen. Some airway thickening is noted. LABORATORY DATA: White blood cell count is 7600, down from 11,000 on admission. Hematocrit is 39, p latelets 148,000. PT and PTT were normal on admission. D-dimer was nonspecifically elevated. Arter ial blood gas showed a pH of 7.46 on admission with a pCO2 of 25 and PO2 85. The amount of oxygen wa s unclear. Initial venous blood lactate was 3.8. The last blood lactate yesterday morning was 1.4. Sodium is 139, potassium 4.4, BUN 25, with creatinine 0.6. Glucose 170, calcium 7.2, magnesium 1.9, normal bilirubin and liver function studies, negative troponin and BNP, albumin 2.8. TSH is normal at 0.6. Urinalysis appeared to be concentrated with a few red blood cells on admission. There was n o evidence of a urinary tract infection. PCR for influenza A/B was negative. Respiratory viral pane l is positive for human metapneumovirus. Blood cultures and sputum cultures are pending. ASSESSMENT: 1. Chronic obstructive pulmonary disease exacerbation, presumably secondary to human metapneumovirus . There is no evidence of ann pneumonia or pulmonary embolic disease. A bacterial process cannot be ruled out as well. He does have purulent sputum on admission. Sputum culture for bacteria is amilcar walter. He is being treated with DuoNeb, guaifenesin, and prednisone at 40 mg a day. He is also on Le vaquin orally. He is improving, but remains with bilateral wheezing. Certainly, human metapneumovir us alone is compatible with his presentation. 2. Chronic obstructive pulmonary disease. The patient certainly has underlying chronic obstructive pulmonary disease. The severity of this is unclear. There is no evidence of emphysema. He does not use inhalers, in part secondary to lack of physician followup. He saw Dr. Holden in the past but correa s not seen him for 2 years. This is also related to his lifestyle and homelessness. He is no longer smoking. 3. Elevated lactate on admission. He may have had mild sepsis. However, he was also volume deplete d, and this may have been a factor as well. 4. Prophylaxis. Deep vein thrombosis prophylaxis with enoxaparin. He does not need gastrointestina l prophylaxis as he is eating. 5. Metabolic: No significant issues identified at this time. PLAN AND RECOMMENDATIONS: The patient will be transitioned to a medical-surgical bed status. He can be transferred to a floor bed if needed. Current bronchodilator therapy and steroids, as well as an tibiotics should be maintained. A sputum culture will be awaited. Further plans and recommendations will be made based on his progress over the next 12-24 hours. Afte r discharge, if he so chooses, I would be happy to see him back in the office to better evaluate his underlying pulmonary status, get him on outpatient inhaled therapies if needed, etc. /[id number]/MODL
[2017-09-30] MEDS: IPRATROPIUM/ALBUTEROL 3 ML DEYVIAL IH SCH ×4 (05:58→21:37)
[2017-09-30] MEDS: predniSONE 20 MG TAB PO SCH (09:39)
[2017-09-30] MEDS: ENOXAPARIN 40 MG/0.4 ML SYR SC SCH (09:39)
[2017-09-30] MEDS: guaiFENesin 600 MG TAB.ER PO SCH ×2 (09:39→20:28)
--- NOTE | 2017-09-30 16:45 | HOSPPROG ---
Hospitalist Progress Note Assessment/Plan: #Acute hypoxic resp failure: resolved. due to human metapneumovirus. CTA negative for PE -likely COPD with significant tobacco history -supportive care #COPD exacerbation -Duonebs, change to PO prednisone, LQ (Day 4) #h/o C diff: treated May 2017. Denies diarrhea now #Lactic acidosis: resolved. Due to dehydration. #Deconditioning: cont PT. Awaiting SNF placement #Homelessness: stays in senior care #Diet: regular #DVT ppx: SCDs #Disp: cont inpatient admission for Duonebs, Abx and PT. Safe for med-surgery. Awaiting SNF placement Subjective: less cough today. "weak" Objective: Vital Signs Temp Pulse Resp BP Pulse Ox 36.9 C 99 16 140/79 H 92 09/30/17 16:00 09/30/17 16:00 09/30/17 16:00 09/30/17 16:00 09/30/17 16:00 Microbiology 09/28/17 00:09 - Final Sputum, Expectorated Sputum Culture - Final Staphylococcus Aureus Laboratory Results 09/28/17 03:40 09/28/17 03:40 09/29/17 09/30/17 10/01/17 05:59 05:59 05:59 Intake Total 4000 3159 900 Output Total 1110 5500 2720 Balance 2890 -2341 -1820 PT 13.7 SEC (12.0-15.0) 09/27/17 20:06 INR 1.03 (0.83-1.16) 09/27/17 20:06 ICD10 Worksheet Patient Problems: Problems Problem Status Onset COPD exacerbation Acute Hypoxemia Acute Severe sepsis Acute Lice infestation Acute Nausea vomiting and diarrhea Acute Weakness Acute
[2017-10-01] MEDS: IPRATROPIUM/ALBUTEROL 3 ML DEYVIAL IH SCH ×4 (05:03→20:36)
[2017-10-01] MEDS: guaiFENesin 600 MG TAB.ER PO SCH ×2 (10:27→20:26)
[2017-10-01] MEDS: predniSONE 20 MG TAB PO SCH (10:28)
[2017-10-01] MEDS: ENOXAPARIN 40 MG/0.4 ML SYR SC SCH (10:28)
--- NOTE | 2017-10-01 11:40 | HOSPPROG ---
Hospitalist Progress Note Assessment/Plan: #Acute hypoxic resp failure: resolved. due to human metapneumovirus. CTA negative for PE -likely COPD with significant tobacco history -supportive care #COPD exacerbation -Duonebs, completed 5 days pred/LQ #h/o C diff: treated May 2017. Denies diarrhea now #Lactic acidosis: resolved. Due to dehydration. #Deconditioning: cont PT. Awaiting SNF placement #Homelessness: stays in long-term #Diet: regular #DVT ppx: SCDs #Disp: cont inpatient admission for Duonebs, Abx and PT. Safe for med-surgery. Hope to DC to SNF tomorrow Subjective: less cough today. Eating, drinking without issue Objective: Vital Signs Temp Pulse Resp BP Pulse Ox 36.6 C 115 H 20 136/86 H 92 10/01/17 07:42 10/01/17 11:02 10/01/17 11:02 10/01/17 07:42 10/01/17 11:02 Microbiology 09/28/17 00:09 - Final Sputum, Expectorated Sputum Culture - Final Staphylococcus Aureus Laboratory Results 09/28/17 03:40 09/28/17 03:40 09/30/17 10/01/17 10/02/17 05:59 05:59 05:59 Intake Total 3159 1400 Output Total 5500 3920 100 Balance -2341 -2520 -100 PT 13.7 SEC (12.0-15.0) 09/27/17 20:06 INR 1.03 (0.83-1.16) 09/27/17 20:06 - Physical Exam Constitutional: no apparent distress, chronically ill appearing Eyes: PERRL Ears, Nose, Mouth, Throat: moist mucous membranes Cardiovascular: regular rate and rhythym Respiratory: rhonchi Gastrointestinal: normoactive bowel sounds Genitourinary: no bladder fullness Skin: warm Musculoskeletal: full muscle strength Neurologic: CN II-XII Intact Psychiatric: interacting appropriately, flat affect ICD10 Worksheet Patient Problems: Problems Problem Status Onset COPD exacerbation Acute Hypoxemia Acute Severe sepsis Acute Lice infestation Acute Nausea vomiting and diarrhea Acute Weakness Acute
[2017-10-02] MEDS: IPRATROPIUM/ALBUTEROL 3 ML DEYVIAL IH SCH ×2 (05:00→10:13)
[2017-10-02] MEDS: guaiFENesin 600 MG TAB.ER PO SCH (08:22)
[2017-10-02] MEDS: ENOXAPARIN 40 MG/0.4 ML SYR SC SCH (08:22)
[2017-10-02 08:34] VITALS: BP 139/92
[2017-10-02] MEDS ORDERED: VANCOMYCIN 125 MG/2.5 ML UDL PO SCH (10:30)
[2017-10-02] MEDS ORDERED: DOXYCYCLINE HYCLATE 100 MG CAP/TAB PO SCH (10:30)
--- NOTE | 2017-10-02 10:37 | HOSPPROG ---
Hospitalist Progress Note Assessment/Plan: # acute hypoxic resp failure: ongoing, still needing O2 # human metapneumovirus - supportive care # staph a in sputum - not well covered by levaquin; will add doxycycline # COPD exacerbation - s/p pred x 5 days - cont duonebs # h/o C dif treated May 2017 - will add vanc ppx dose since starting doxy # lactic acidosis: resolved. Due to dehydration. # deconditioning: cont PT # homelessness: stays in alf # DVT ppx: lovenox Subjective: still feels weak; still coughing Objective: Vital Signs Temp Pulse Resp BP Pulse Ox 36.6 C 86 16 139/92 H 92 10/02/17 08:00 10/02/17 08:00 10/02/17 08:00 10/02/17 08:00 10/02/17 08:00 Laboratory Results 09/28/17 03:40 09/28/17 03:40 10/01/17 10/02/17 10/03/17 05:59 05:59 05:59 Intake Total 1400 800 Output Total 3920 1325 Balance -2520 -525 PT 13.7 SEC (12.0-15.0) 09/27/17 20:06 INR 1.03 (0.83-1.16) 09/27/17 20:06 chart reviewed CTA/CXR reviewed - Physical Exam Constitutional: unkempt Cardiovascular: regular rate and rhythym, no murmur, rub, or gallop Respiratory: no respiratory distress, expiratory wheeze (mild), No inspiratory crackles, No bronchial breath sounds Gastrointestinal: soft, non-tender abdomen, no palpable masses ICD10 Worksheet Patient Problems: Problems Problem Status Onset Lice infestation Acute Nausea vomiting and diarrhea Acute Weakness Acute COPD exacerbation Acute Severe sepsis Acute Hypoxemia Acute
--- NOTE | 2017-10-02 13:02 | PDIAF ---
- Diagnosis Diagnosis: pneumonia Code Status: Full Code - Medication Management Discharge Medications: Medications to Continue on Transfer Albuterol Sulfate [Ventolin Hfa] 8 gm IH Q6 PRN #1 [id number].[id number] 10/02/17 [Last Taken Unknown] Doxycycline Hyclate [Vibramycin 100 MG (*)] 100 mg PO BID #14 capsule 10/02/17 [ Last Taken Unknown] Ipratropium/Albuterol [Combivent Respimat Inhal [place](*)] 1 inh IH QID #1 mdi [Last Taken Unknown] Vancomycin [Vancocin Oral Liquid] 125 mg PO BID #14 udl 10/02/17 [Last Taken Unknown] Senior Care Antibiotics: doxycycline and vancomycin PO - stop after 7 days Discharge Medications: Refer to the Discharge Home Medication list for PRN reason. - Orders Services needed: Registered Nurse, Certified Estate Manager, Physical Therapy, Occupational Therapy Isolation Type: Contact Isolation, Droplet Isolation Diet Recommendation: no restrictions on diet - Follow Up Care Current Providers and Referrals: NONE *PRIMARY CARE P,. [Unknown] - As per Instructions Bill Davila MD [Medical Doctor] - (2-4 weeks)
--- NOTE | 2017-10-02 13:40 | GDS ---
[f rep st] DISCHARGE SUMMARY ALL DIAGNOSES: 1. Acute respiratory failure. 2. Human metapneumovirus infection. 3. Staphylococcus aureus in sputum. 4. Chronic obstructive pulmonary disease exacerbation. 5. Tobacco use. 6. History of Clostridium difficile. 7. Lactic acidosis. 8. Deconditioning. 9. Homelessness. CONSULTATIONS: Pulmonology, Dr. Davila. IMAGING: Chest and thorax CT angiogram showing no pulmonary embolus, tortuous aorta, multiple compre ssion fractures. HOSPITAL COURSE: 77-year-old man admitted with shortness of breath and lower respiratory symptoms. Found to be positive for human metapneumovirus. Sputum culture also grew out Staph aureus in sputum. He initially completed a course of Levaquin as well as prednisone. On discharge, he is still requi ring some oxygen. Because of the Staph aureus in sputum, incompletely covered by Levaquin, I am anna mmending additional 7 days of doxycycline. Because he has had a history of C difficile, I would like him to continue with vancomycin oral while he is on doxycycline. He does not have a formal diagnosis of COPD though that is suspected, given his long-term tobacco use . Received nebulizers while he was here. He will be transitioned to albuterol inhaler, as well as C ombivent on discharge. I recommend that he follow up with Dr. Davila in 2-4 weeks. DISPOSITION: He is discharged to [facility] in stable condition, though he is still requiring oxy gen. BILLING: I spent more than 30 minutes on the day of discharge, coordinating care. /[id number]/MODL
--- NOTE | 2017-10-02 15:25 | ASDISCHSUM ---
Discharge Information Plan Status:SNF Medically Cleared to Leave:10/02/2017 Discharge Date:10/02/2017 03:17 PM D/C Disposition:Shelter Facility ADT D/C Disposition:Shelter Facility Projected Discharge Date:10/02/2017 03:00 PM Transportation at D/C: Discharge Delay Reason: Follow-Up Date:10/02/2017 03:00 PM Discharge Slot: Final Diagnosis: Placement Information Referral Type:*Intermediate/SNF Referral ID:[id number] Provider Name:[facility] Address 1:[address] Phone Number: Address 2: Fax Number: [facility]:[place] Selection Factors: State:[place] Referral Type:*Intermediate/SNF Referral ID:[id number] Provider Name: Address 1: Phone Number: Address 2: Fax Number: City: Selection Factors: State: Patient Contact Information Contact Name:DUDLEY Relationship:Friend Address:[address] [place] [address] [id number] City:[place] Alternate Phone: State/Zip Code:[place] [address] Email: Financial Information Financial Class:Medicare Advantage Plans Primary Plan Desc:[employer] Primary Plan Number:[id number] Secondary Plan Desc: Secondary Plan Number: Assessment Information [facility] Initial CM Assessment Living Arrangements What is your living Answers: Alone arrangement? Who do you live with? Type Of Residence What kind of residence do Answers: Homeless you live in? Discharge Plan Comments Coordination Status Comments Notes: Patient is a 77yo single male who was admitted for an acute COPD exacerbation and hypoxemia. Patient is homeless and reports he is staying at the longterm. OT/PT have been ordered. Patient has a [employer] Advantage Plan. D/C plan TBD. CM will follow. Date Signed: 09/28/2017 12:26 PM Electronically Signed By:Soni Aly LCSW [facility] CM Progress Note CM Note CM Note Notes: Patient continues care for Duonebs, ABX and PT. Patient may be transferred to med-surg today. PT is stating no needs. Patient may need respite care. D/C most likely in the next 2 days. CM will follow. Date Signed: 09/29/2017 12:49 PM Electronically Signed By:Soni Aly LCSW Case Management Discharge Plan Note Case Management Discharge Discharge Order Complete? Answers: Yes Patient to Obtain Answers: Other Notes: [facility] Medications Transportation Arranged Answers: Other Notes: [facility] Faxed Final Orders Answers: Yes Notes: [facility] Agency/Facility Transfer Answers: Yes Notes: [facility] Report Printed & Faxed to Receiving Agency Discharge Comments Notes: Patient to transfer to [facility] for SNF rehab today. No further needs. Date Signed: 10/02/2017 03:23 PM Electronically Signed By:Soni Aly LCSW Intervention Information
== END 2017-10-02 15:17 | DRG 189 ==
LOC: EDUNIT# → OBSVTOIN 20:55 → F2N 22:13 → F3E 09-30 16:46
PROVIDERS: ADMIT Internal Medicine; ATTEND Internal Medicine
DX: J96.01 Acute respiratory failure with hypoxia (principal); J44.1 Chronic obstructive pulmonary disease with (acute) exacerbation; E87.2 Acidosis; B97.81 Human metapneumovirus as the cause of diseases classified elsewhere; B95.7 Other staphylococcus as the cause of diseases classified elsewhere; Z72.0 Tobacco use; Z59.0 Homelessness; M06.9 Rheumatoid arthritis, unspecified
CPT/HCPCS: 96365; 96366; 97116-GP; 97161-GP; 97166-GO; 97530-GP; 97535-GO; G8978-GP-CJ; G8979-GP-CI; G8987-GO-CJ; G8988-GO-CH; J1650; J1956; J2930; J7512; Q9967